=== PATIENT | male | born 1960 | race Caucasian/White ===

== ENCOUNTER 2016-11-21 13:01 | Emergency (ER) | payer OTHER ==
[~2016-11-21] VITALS: Ht 177.8 cm; Wt 102.4 kg
[~2016-11-21 13:01] MED LIST: ANTIVERT25 MG PO; ARIPIPRAZOLE5 MG PO; BUSPAR15 MG PO; CLONAZEPAM0.5 MG PO; GLIPIZIDE XL5 MG PO; HYDROCHLOROTH12.5 M3 PO; LISINOPRIL20 MG PO; LOVASTATIN40 MG PO; MIRTAZAPINE15 MG PO; PAROXETINE HCL40 MG PO; RANITIDINE HCL300 MG PO; ZOFRAN ODT4 MG PO
[2016-11-21] MEDS ORDERED: NAPROSYN500 MG PO (15:14)
[2016-11-21 15:42] VITALS: BP 130/71
== END 2016-11-21 15:44 | disposition home or self-care (01) ==
LOC: EME 13:01
DX: S93.401A Sprain of unspecified ligament of right ankle, initial encounter (principal); X50.1XXA Overexertion from prolonged static or awkward postures, initial encounter
CPT/HCPCS: 73610; 99281; 99284